=== PATIENT | male | born 1975 | race Caucasian/White ===

== ENCOUNTER → 2016-08-23 | Outpatient (CLI) | payer OTHER ==
[~2016-08-23] MED LIST: KEFL500C7 PO; NAPR250T2 PO; SILD25TA PO; ZANTTAB9 PO
[2016-08-23 17:05] LABS: MEAN CORPUSCULAR HEMOGLOBIN 29.4 pg (27.0-33.0); MEAN CORPUSCULAR HGB CONC 32.7 g/dl (32.0-36.5); MEAN CORPUSCULAR VOLUME 89.9 fl (80.0-96.0); RED CELL DISTRIBUTION WIDTH 12.2 % (11.5-14.5); WHITE BLOOD COUNT 7.1 K/mm3 (4.0-10.0)
[2016-08-23 18:08] LABS: CALCIUM LEVEL 9.1 MG/DL (8.5-10.1); CREATININE FOR GFR 1.6 MG/DL (0.70-1.30); GLOMERULAR FILTRATION RATE 51.5 (>60); POTASSIUM SERUM 4.7 MEQ/L (3.5-5.1)
== END ==
LOC: M WUC 11:27
PROVIDERS: ATTEND Urology
DX: Z01.818 Encounter for other preprocedural examination (principal); N13.30 Unspecified hydronephrosis

== ENCOUNTER → 2016-08-30 | Outpatient (REF) | payer OTHER | LOC: M SMT 16:39 | PROVIDERS: ATTEND Urology | DX: Z01.818 Encounter for other preprocedural examination (principal); N13.30 Unspecified hydronephrosis ==

== ENCOUNTER → 2016-09-02 | Day surgery (SDC) | payer OTHER ==
[~2016-09-02] VITALS: Ht 185.4 cm; Wt 114.3 kg
[~2016-09-02] MED LIST changes: +CONRAY-60 60% 50ML VIAL (Q9961) As Ordered ONE; +CONRAY-60 60% 50ML VIAL (Q9961) XX ONE; +LIDOCAINE 2% 5ML JELLY UROJET As Ordered ONE; +LIDOCAINE 2% 5ML JELLY UROJET XX ONE; +LIDOCAINE 2% INJ 100 MG/5 ML SDV (FOR ANES.) As Ordered ONE; +LR 1,000 ML IV SCH; +LevoFLOXacin IV 500 MG in APPROPRIATE DILUENT 1 EA IV ONE; +MIDAZOLAM INJ 2 MG/2 ML VIAL (J2250) As Ordered ONE; +ONDANSETRON 4MG/2ML VIAL (J2405) As Ordered ONE; +PROPOFOL 200 MG/20 ML VIAL As Ordered ONE; +fentaNYL 100 MCG/2 ML INJECTION (J3010) As Ordered ONE
[2016-09-02 08:45] VITALS: BP 130/68
--- NOTE | 2016-09-02 10:28 | REP ---
RETROGRADE PYELOGRAM: 09/02/2016. Comparison 05/31/2016. Clinical history: Right hydronephrosis. Two views from C-arm fluoroscopy provided to Dr. Black of the urology division. There is a pigtail catheter overlying the right ureter with the proximal coil in the renal pelvis and the distal on the right side of the bladder. Pelvic phleboliths visible. The image of the lower pelvis shows a ureter scope. Fluoroscopy time 0.3 minutes. Signed by Sae Baez MD 09/02/2016 04:18 P
--- NOTE | 2016-09-03 07:04 | RO ---
DATE OF PROCEDURE: 09/02/2016 PREPROCEDURE DIAGNOSIS: Right hydronephrosis. POSTPROCEDURE DIAGNOSIS: Right hydronephrosis. PROCEDURE: Cystoscopy, right ureteral stent removal, right retrograde pyelogram with intraoperative interpretation of images, right ureteral stent placement. SURGEON: Emanuel Black MD SENSORY SCIENTIST: None. ANESTHESIA: Monitored anesthesia care (MAC). OPERATIVE INDICATIONS: This is a 41-year-old male with known atrophic but hydronephrotic right kidney. He was originally seen in the hospital several months ago for what appeared to be urosepsis and, at that time, was found to have likely chronic right ureteropelvic junction obstruction with severe hydronephrosis. This improved with stent placement. It since has been recommended that he would likely benefit from right simple nephrectomy. Due to social issues, he has not been able to set the surgery up and, so for now, he has elected to undergo stent exchanges until he is able to have his kidney removed. DESCRIPTION OF PROCEDURE: The patient brought to the operating room, where MAC anesthesia was administered. Prophylactic antibiotics were infused. He was then placed in the dorsal lithotomy position and prepped and draped in the usual sterile fashion. A rigid cystoscope was inserted into the urethral meatus and advanced to the bladder. The previously placed stent was then seen. It was grasped and was withdrawn until the distal end was seen protruding from the urethral meatus. A wire was then advanced up the stent up to the right collecting system. The stent was then removed, leaving the wire in place. Next, an open-ended ureteral catheter was advanced over the wire up the right collecting system and the wire was the removed. A retrograde pyelogram was performed and notable for what appeared to be severely blown out right kidney. At this point, the wire was advanced back up the right collecting system and the open-ended ureteral catheter was removed. I then advanced a #6- Greenlandic x 22-32 cm JJ ureteral stent over the wire up into the right collecting system. The wire was then removed, and there were adequate curls of the stent in the right renal pelvis and in the bladder. The bladder was then emptied of all fluid, and this marked the conclusion of the procedure. Patient was then taken out of the dorsal lithotomy position, awakened from anesthesia, and transported to the recovery room in stable condition. ESTIMATED BLOOD LOSS: 0 mL. COMPLICATIONS: None. SPECIMENS: None. PLAN: The patient will followup in the clinic in about 2 months and we will, at that time, either discuss potentially removing the stent, exchanging the stent or doing a right nephrectomy. It has been recommended previously that he undergo a right nephrectomy. JUAN
== END | disposition home or self-care (01) ==
LOC: M SDC 06:56
PROVIDERS: ATTEND Urology
DX: N13.30 Unspecified hydronephrosis (principal); K21.9 Gastro-esophageal reflux disease without esophagitis; Z79.899 Other long term (current) drug therapy; Z88.0 Allergy status to penicillin
CPT/HCPCS: 52332; 74420; C1726; C2617; J1956; J2250; J2405; J3010; Q9961

== ENCOUNTER 2016-09-10 18:31 | Emergency (ER) | payer OTHER ==
[~2016-09-10 18:31] MED LIST changes: -CONRAY-60 60% 50ML VIAL (Q9961) As Ordered ONE; -CONRAY-60 60% 50ML VIAL (Q9961) XX ONE; -LIDOCAINE 2% 5ML JELLY UROJET As Ordered ONE; -LIDOCAINE 2% 5ML JELLY UROJET XX ONE; -LIDOCAINE 2% INJ 100 MG/5 ML SDV (FOR ANES.) As Ordered ONE; -LR 1,000 ML IV SCH; -LevoFLOXacin IV 500 MG in APPROPRIATE DILUENT 1 EA IV ONE; -MIDAZOLAM INJ 2 MG/2 ML VIAL (J2250) As Ordered ONE; -ONDANSETRON 4MG/2ML VIAL (J2405) As Ordered ONE; -PROPOFOL 200 MG/20 ML VIAL As Ordered ONE; -fentaNYL 100 MCG/2 ML INJECTION (J3010) As Ordered ONE
== END 2016-09-10 19:39 | disposition left against medical advice (07) ==
LOC: M ED 18:31
DX: R50.9 Fever, unspecified (principal); Z53.20 Procedure and treatment not carried out because of patient's decision for unspecified reasons

== ENCOUNTER → 2016-11-21 | Outpatient (REF) | payer OTHER | LOC: M SMT 16:33 | PROVIDERS: ATTEND Urology | DX: Z01.818 Encounter for other preprocedural examination (principal); N13.30 Unspecified hydronephrosis ==

== ENCOUNTER → 2016-11-22 | Outpatient (CLI) | payer OTHER ==
[2016-11-22 13:48] LABS: MEAN CORPUSCULAR HEMOGLOBIN 29.5 pg (27.0-33.0); MEAN CORPUSCULAR HGB CONC 32.9 g/dl (32.0-36.5); MEAN CORPUSCULAR VOLUME 89.7 fl (80.0-96.0); RED CELL DISTRIBUTION WIDTH 12.9 % (11.5-14.5); WHITE BLOOD COUNT 6.3 K/mm3 (4.0-10.0)
[2016-11-22 13:57] LABS: CREATININE FOR GFR 1.48 MG/DL (0.70-1.30); GLOMERULAR FILTRATION RATE 56.3 (>60); POTASSIUM SERUM 4.5 MEQ/L (3.5-5.1)
== END ==
LOC: M WUC 11:01
PROVIDERS: ATTEND Urology
DX: Z01.818 Encounter for other preprocedural examination (principal); N13.30 Unspecified hydronephrosis

== ENCOUNTER → 2016-11-25 | Day surgery (SDC) | payer OTHER ==
[~2016-11-25] VITALS: Ht 185.4 cm; Wt 120.7 kg
[~2016-11-25] MED LIST changes: +CONRAY-60 60% 50ML VIAL (Q9961) As Ordered ONE; +LIDOCAINE 2% 5ML JELLY UROJET As Ordered ONE; +LIDOCAINE 2% INJ 100 MG/5 ML SDV (FOR ANES.) As Ordered ONE; +LR 1,000 ML IV SCH; +LevoFLOXacin IV 500 MG in APPROPRIATE DILUENT 1 EA IV ONE; +MIDAZOLAM INJ 2 MG/2 ML VIAL (J2250) As Ordered ONE; +PHENYLephrine HCL 500 MCG/5 ML (100MCG/ML) SYRINGE (J2370) As Ordered ONE; +PROPOFOL 200 MG/20 ML VIAL As Ordered ONE; +fentaNYL 100 MCG/2 ML INJECTION (J3010) As Ordered ONE
[2016-11-25 08:15] VITALS: BP 129/85
--- NOTE | 2016-11-25 08:51 | REP ---
C-ARM VIEW ABDOMEN: C-arm view of the abdomen is performed. A right ureteral stent is seen with the proximal end coiled in the region of the right renal collecting system with the distal end coiled in the region of the urinary bladder. 33 seconds of fluoroscopy time utilized. Signed by Martin Spears MD 11/25/2016 05:40 P
--- NOTE | 2016-11-25 09:09 | RO ---
DATE OF PROCEDURE: 11/25/2016 PREPROCEDURE DIAGNOSIS: Right hydronephrosis. POSTPROCEDURE DIAGNOSIS: Right hydronephrosis. PROCEDURE: Cystoscopy, right ureteral stent exchange, right retrograde pyelogram with intraoperative interpretation of images. SURGEON: Emanuel Black MD PRODUCE WRAPPER: None. ANESTHESIA: MAC. OPERATIVE INDICATIONS: This is a 41-year-old male with an atrophic, nonfunctioning right kidney, who was originally seen several months ago for urosepsis due to a an obstructed right kidney and urinary tract infection. A stent was placed at that time, and he improved with that in addition to antibiotics. It has been recommended that the patient have a right nephrectomy since it has been demonstrated that his kidney is nonfunctioning and prone to infection. He wanted to undergo this but will do it a later date. Therefore, for now, he wants to do right ureteral stent exchange. He presented here today for his next stent exchange. DESCRIPTION OF PROCEDURE: The patient was brought to the operating room, where MAC anesthesia was administered. Prophylactic antibiotics were infused. He was then placed in the dorsal lithotomy position and prepped and draped in the usual sterile fashion. A rigid cystoscope was then inserted into the urethral meatus and advanced into the bladder. Once in the bladder, the right stent was seen. The stent was then grasped and withdrawn until the distal end was seen extruding from the urethral meatus. Once that was done, a wire was then advanced up the stent and into the right collecting system. The stent was then removed leaving the wire in place. I then advanced an open ended ureteral catheter over the wire up into the right collecting system. The wire was then removed. I utilized the open ended ureteral catheter to shoot a retrograde pyelogram. The retrograde pyelogram was notable for moderate right hydronephrosis. There was no extravasation. At this point, the wire was then advanced back up the right collecting system. The open ended ureteral catheter was removed. I then utilized the wire to advance a #6-Mauritian x 22-32 cm JJ ureteral stent up the right collecting system. The wire was then removed, and there were adequate curls of the stent in the right renal pelvis and in the bladder. The bladder was then emptied of all fluid, and this marked the conclusion of the procedure. The patient was then taken out of the dorsal lithotomy position, awakened from anesthesia, and transported to the recovery room in stable condition. ESTIMATED BLOOD LOSS: 0 mL. COMPLICATIONS: None. SPECIMENS: None. PLAN: The patient will followup in the clinic in approximately two months and at that time we will either get him set up for a right nephrectomy or his next stent exchange. JUAN
== END | disposition home or self-care (01) ==
LOC: M SDC 06:08
PROVIDERS: ATTEND Urology
DX: N13.30 Unspecified hydronephrosis (principal); K21.9 Gastro-esophageal reflux disease without esophagitis; F43.10 Post-traumatic stress disorder, unspecified; N18.9 Chronic kidney disease, unspecified; Z87.442 Personal history of urinary calculi; Z79.899 Other long term (current) drug therapy
CPT/HCPCS: 52332; 74420; C1726; C2617; J1956; J2250; J2370; J3010; Q9961

== ENCOUNTER → 2017-03-10 | Outpatient (CLI) | payer OTHER ==
[~2017-03-10] MED LIST changes: -CONRAY-60 60% 50ML VIAL (Q9961) As Ordered ONE; +KEFL500C17 PO; -KEFL500C7 PO; -LIDOCAINE 2% 5ML JELLY UROJET As Ordered ONE; -LIDOCAINE 2% INJ 100 MG/5 ML SDV (FOR ANES.) As Ordered ONE; -LR 1,000 ML IV SCH; -LevoFLOXacin IV 500 MG in APPROPRIATE DILUENT 1 EA IV ONE; -MIDAZOLAM INJ 2 MG/2 ML VIAL (J2250) As Ordered ONE; -NAPR250T2 PO; +NAPR250T4 PO; -PHENYLephrine HCL 500 MCG/5 ML (100MCG/ML) SYRINGE (J2370) As Ordered ONE; -PROPOFOL 200 MG/20 ML VIAL As Ordered ONE; -fentaNYL 100 MCG/2 ML INJECTION (J3010) As Ordered ONE
[2017-03-10 13:34] LABS: MEAN CORPUSCULAR HEMOGLOBIN 30.2 pg (27.0-33.0); MEAN CORPUSCULAR VOLUME 88.9 fl (80.0-96.0); RED CELL DISTRIBUTION WIDTH 12.4 % (11.5-14.5)
[2017-03-10 13:54] LABS: CALCIUM LEVEL 9.3 MG/DL (8.5-10.1); CREATININE FOR GFR 1.68 MG/DL (0.70-1.30); GLOMERULAR FILTRATION RATE 48.7 (>60); POTASSIUM SERUM 4.2 MEQ/L (3.5-5.1)
== END ==
LOC: M WUC 11:44
PROVIDERS: ATTEND Urology
DX: Z01.818 Encounter for other preprocedural examination (principal); N13.30 Unspecified hydronephrosis; N39.0 Urinary tract infection, site not specified

== ENCOUNTER 2017-03-17 06:26 | Day surgery (SDC) | payer OTHER ==
[~2017-03-17] VITALS: Ht 185.4 cm; Wt 114.3 kg
[2017-03-17] MEDS ORDERED: LR 1,000 ML IV SCH ×2 (06:45→08:30)
[2017-03-17] MEDS ORDERED: LevoFLOXacin IV 500 MG in APPROPRIATE DILUENT 1 EA IV ONE (06:45)
[2017-03-17] MEDS ORDERED: ROCURONIUM BROMIDE 50 MG/5 ML VIAL/SYRINGE As Ordered ONE (07:11)
[2017-03-17] MEDS ORDERED: ONDANSETRON 4MG/2ML VIAL (J2405) As Ordered ONE (07:11)
[2017-03-17] MEDS ORDERED: PROPOFOL 200 MG/20 ML VIAL As Ordered ONE ×2 (07:11→07:55)
[2017-03-17] MEDS ORDERED: fentaNYL 100 MCG/2 ML INJECTION (J3010) As Ordered ONE (07:12)
[2017-03-17] MEDS ORDERED: MIDAZOLAM INJ 2 MG/2 ML VIAL (J2250) As Ordered ONE (07:12)
[2017-03-17] MEDS ORDERED: CONRAY-60 60% 50ML VIAL (Q9961) As Ordered ONE (07:16)
[2017-03-17] MEDS ORDERED: LIDOCAINE 2% 5ML JELLY UROJET As Ordered ONE (07:43)
[2017-03-17 08:23] VITALS: BP 119/74
[2017-03-17] MEDS ORDERED: fentaNYL 100 MCG/2 ML INJECTION (J3010) IV PRN (08:30)
[2017-03-17] MEDS ORDERED: ACETAMINOPHEN TAB 650MG DOSE (2X325MG) PO PRN (08:30)
[2017-03-17] MEDS ORDERED: ONDANSETRON 4MG/2ML VIAL (J2405) IV PRN (08:30)
[2017-03-17] MEDS ORDERED: PERCOCET 5MG/325MG TAB PO PRN (08:30)
[2017-03-17] MEDS ORDERED: METOCLOPRAMIDE INJ 10MG/2ML VIAL (J2765) IV PRN (08:30)
[2017-03-17] MEDS ORDERED: MEPERIDINE INJ 25 MG/ML VIAL (J2175) IV PRN (08:30)
--- NOTE | 2017-03-17 11:10 | REP ---
Retrograde pyelogram: Two views. History: Hydronephrosis. 23 seconds of fluoroscopy time is reported. Findings: A sequence of two last image hold fluoroscopic spot radiographs of the abdomen document double pigtail ureteral stent placement on the right. Marked hydronephrosis is seen with contrast injected into the collecting system. Signed by French Argueta MD 03/17/2017 12:33 P
--- NOTE | 2017-03-19 11:34 | RO ---
DATE OF PROCEDURE: 03/17/2017 PREPROCEDURE DIAGNOSIS: Right hydronephrosis. POSTPROCEDURE DIAGNOSIS: Right hydronephrosis. PROCEDURE: Cystoscopy, right ureteral stent exchange, right retrograde pyelogram with intraoperative interpretation of images. SURGEON: Dr. Emanuel Black ASSIGNMENT OFFICER: None. ANESTHESIA: MAC. OPERATIVE INDICATIONS: This is a 41-year-old male with a history of right sided hydronephrosis and ureteropelvic obstruction. He has a nonfunctioning right kidney, which was first found out when he came in with septic shock, urinary tract infection (UTI) and hydronephrosis. It has been recommended that he have the kidney removed, but he has delayed this and therefore he presents today for stent exchanges. He is here today for a routine stent exchange. DESCRIPTION OF PROCEDURE: The patient was brought to the operating room, where MAC anesthesia was administered. Prophylactic antibiotics were infused. He was then placed in the dorsal lithotomy position and prepped and draped in the usual sterile fashion. A rigid cystoscope was then inserted into the urethral meatus and advanced into the bladder. Once within the bladder, the previously placed right ureteral stent was seen. The stent was then withdrawn until the distal end was seen protruding from the urethral meatus. We then advanced the wire up into the stent and into the right collecting system. The stent was removed leaving the wire in place. We then advanced an open ended ureteral catheter up the wire and into the right collecting system. The wire was then removed leaving the ureteral catheter in place. At this point, a retrograde pyelogram was performed and was notable for severely dilated right kidney. There was no extravasation. At this point, the wire was advanced back up into the ureteral catheter and the ureteral catheter was removed, leaving the wire in place. The wire was then utilized to advance a #6-Nepalese x 22-32 cm JJ ureteral stent up the right collecting system. The wire was then removed, and there were adequate curls of the stent in the right renal pelvis and in the bladder. The bladder was then emptied of all fluid, and this marked the conclusion of the procedure. The patient was then taken out of the dorsal lithotomy position, awakened from anesthesia, and transported to the recovery room in stable condition. ESTIMATED BLOOD LOSS: 0 mL. COMPLICATIONS: None. SPECIMENS: None. PLAN: The patient will followup in the clinic in about 2 months to get him set up either for removal of the kidney or another stent exchange. JUAN
== END 2017-03-17 08:26 | disposition home or self-care (01) ==
LOC: CANPRESDC → M SDC 06:26
PROVIDERS: ATTEND Urology
DX: N13.30 Unspecified hydronephrosis (principal); Z79.899 Other long term (current) drug therapy
CPT/HCPCS: 52332; 74420; C1769; C2617; J1956; J2250; J2405; J3010; Q9961

== ENCOUNTER → 2017-06-26 | Outpatient (CLI) | payer OTHER ==
[2017-06-26 14:28] LABS: MEAN CORPUSCULAR HEMOGLOBIN 28.5 pg (27.0-33.0); MEAN CORPUSCULAR HGB CONC 32.5 g/dl (32.0-36.5); MEAN CORPUSCULAR VOLUME 87.8 fl (80.0-96.0); PLATELET COUNT, AUTOMATED 368 10^3/uL (150-450); RED CELL DISTRIBUTION WIDTH 12.6 % (11.5-14.5); WHITE BLOOD COUNT 9.3 10^3/uL (4.0-10.0)
[2017-06-26 14:33] LABS: CALCIUM LEVEL 9.1 MG/DL (8.5-10.1); CREATININE FOR GFR 1.69 MG/DL (0.70-1.30); GLOMERULAR FILTRATION RATE 48.1 (>60); POTASSIUM SERUM 4.5 MEQ/L (3.5-5.1)
== END ==
LOC: M WUC 11:34
PROVIDERS: ATTEND Urology
DX: Z01.818 Encounter for other preprocedural examination (principal); N13.30 Unspecified hydronephrosis; N39.0 Urinary tract infection, site not specified

== ENCOUNTER 2017-06-27 07:24 | Day surgery (SDC) | payer OTHER ==
[~2017-06-27] VITALS: Ht 185.4 cm; Wt 124.2 kg
[2017-06-27] MEDS ORDERED: LevoFLOXacin IV 500 MG in APPROPRIATE DILUENT 1 EA IV ONE (07:45)
[2017-06-27] MEDS ORDERED: LR 1,000 ML IV ONE (08:45)
[2017-06-27] MEDS ORDERED: CONRAY-60 60% 50ML VIAL (Q9961) As Ordered ONE (10:34)
[2017-06-27] MEDS ORDERED: LIDOCAINE 2% 5ML JELLY UROJET As Ordered ONE (10:50)
[2017-06-27] MEDS ORDERED: fentaNYL 100 MCG/2 ML INJECTION (J3010) As Ordered ONE (11:06)
[2017-06-27] MEDS ORDERED: MIDAZOLAM INJ 2 MG/2 ML VIAL (J2250) As Ordered ONE (11:06)
[2017-06-27] MEDS ORDERED: PROPOFOL 200 MG/20 ML VIAL As Ordered ONE (11:06)
[2017-06-27] MEDS ORDERED: ONDANSETRON 4MG/2ML VIAL (J2405) As Ordered ONE (11:10)
[2017-06-27] MEDS ORDERED: dexameTHASONE 4 MG/ML 1ML VIAL (J1100) As Ordered ONE (11:10)
[2017-06-27] MEDS ORDERED: KETOROLAC 60 MG/2 ML VIAL (J1885) As Ordered ONE (11:11)
--- NOTE | 2017-06-27 11:23 | ROOPDOC ---
[facility] Report Of Operation Report of Operation DATE OF PROCEDURE: 06/27/2017 PREPROCEDURE DIAGNOSIS: Right hydronephrosis. POSTPROCEDURE DIAGNOSIS: Right hydronephrosis. PROCEDURE: Cystoscopy, right ureteral stent removal, right ureteral stent placement, right retrograde pyelogram with intraoperative interpretation of images. SURGEON: Dr. Tomi Robles RN POSTPARTUM: None. ANESTHESIA: MAC. OPERATIVE INDICATIONS: This is a 42-year-old male with a history of right sided hydronephrosis and ureteropelvic obstruction. He has a nonfunctioning right kidney, which was first found out when he came in with septic shock, urinary tract infection (UTI) and hydronephrosis. It has been recommended that he have the kidney removed, but he has delayed this and therefore he presents today for stent exchanges. He is here today for a routine stent exchange. DESCRIPTION OF PROCEDURE: The patient was brought to the operating room, where MAC anesthesia was administered. Prophylactic antibiotics were infused. He was then placed in the dorsal lithotomy position and prepped and draped in the usual sterile fashion. A rigid cystoscope was then inserted into the urethral meatus and advanced into the bladder. Once within the bladder, the previously placed right ureteral stent was seen. The stent was then withdrawn until the distal end was seen protruding from the urethral meatus. We then advanced the wire up into the stent and into the right collecting system. The stent was removed leaving the wire in place. We then advanced an open ended ureteral catheter up the wire and into the right collecting system. The wire was then removed leaving the ureteral catheter in place. At this point, a retrograde pyelogram was performed and was notable for severely dilated right kidney. There was no extravasation. At this point, the wire was advanced back up into the ureteral catheter and the ureteral catheter was removed, leaving the wire in place. The wire was then utilized to advance a #6-Sami x 22-32 cm JJ ureteral stent up the right collecting system. The wire was then removed, and there were adequate curls of the stent in the right renal pelvis and in the bladder. The bladder was then emptied of all fluid, and this marked the conclusion of the procedure. The patient was then taken out of the dorsal lithotomy position, awakened from anesthesia, and transported to the recovery room in stable condition. ESTIMATED BLOOD LOSS: 0 mL. COMPLICATIONS: None. SPECIMENS: None. PLAN: The patient will followup in the clinic in about 2 months to get him set up either for removal of the kidney or another stent exchange. TOMI ROBLES MD Jun 27, 2017 11:23
[2017-06-27 11:40] VITALS: BP 122/78
--- NOTE | 2017-06-27 11:52 | REP ---
Retrograde pyelogram: Two views. History: Right-sided hydronephrosis. Findings: A sequence of two last image hold fluoroscopically obtained spot radiographs of the abdomen document ureteral contrast injection cannulation and stenting. No laterality markers. 17 seconds of fluoroscopy time is reported. Signed by French Argueta MD 06/27/2017 02:44 P
== END 2017-06-27 11:46 | disposition home or self-care (01) ==
LOC: M SDC 07:24
PROVIDERS: ATTEND Urology
DX: N13.30 Unspecified hydronephrosis (principal); K21.9 Gastro-esophageal reflux disease without esophagitis; N28.9 Disorder of kidney and ureter, unspecified; Z79.899 Other long term (current) drug therapy
CPT/HCPCS: 52332; 74420; C1769; C2617; J1100; J1885; J1956; J2250; J2405; J3010; Q9961

== ENCOUNTER → 2017-11-28 | Outpatient (REF) | payer OTHER ==
[2017-11-28 18:56] LABS: APPEARANCE, URINE CLEAR (CLEAR); BACTERIA, URINE AUTO NEGATIVE (NEGATIVE); BILIRUBIN, URINE AUTO NEGATIVE (NEGATIVE); BLOOD, URINE BLOOD 2+ (NEGATIVE); COLOR, URINE YELLOW (YELLOW); GLUCOSE, URINE (UA) AUTO NEGATIVE (NEGATIVE); KETONE, URINE AUTO NEGATIVE (NEGATIVE); LEUKOCYTE ESTERASE, URINE AUTO NEGATIVE (NEGATIVE); MUCUS, URINE SMALL (NEGATIVE); NITRITE, URINE AUTO NEGATIVE (NEGATIVE); PROTEIN, URINE AUTO 1+ mg/dL (NEGATIVE); RBC, URINE AUTO 1 /HPF (0-3); SPECIFIC GRAVITY URINE AUTO 1.018 (1.002-1.035); SQUAMOUS EPITHELIAL CELL UR AU 0 /HPF (0-6); UROBILINOGEN, URINE AUTO 0.2 mg/dL (0.0-2.0); WBC, URINE AUTO 2 /HPF (0-3)
== END ==
LOC: M SMT 17:37
DX: N39.0 Urinary tract infection, site not specified (principal)

== ENCOUNTER 2018-08-28 10:13 | Day surgery (SDC) | payer OTHER ==
[~2018-08-28] VITALS: Ht 185.4 cm; Wt 119.7 kg
[~2018-08-28 10:13] MED LIST changes: +GLYCOPYRROLATE INJ 0.2 MG/ML 2 ML VIAL As Ordered ONE; +LIDOCAINE 2% INJ 100 MG/5 ML SDV (FOR ANES.) As Ordered ONE; +LR 1,000 ML IV SCH; +MIDAZOLAM INJ 2 MG/2 ML VIAL (J2250) As Ordered ONE; +NEOSTIGMINE 10 MG/10 ML VIAL (J2710) As Ordered ONE; +ONDANSETRON 4MG/2ML VIAL (J2405) As Ordered ONE; +PROPOFOL 200 MG/20 ML VIAL As Ordered ONE; +ROCURONIUM BROMIDE 50 MG/5 ML VIAL As Ordered ONE; +dexameTHASONE 4 MG/ML 1ML VIAL (J1100) As Ordered ONE; +fentaNYL 100 MCG/2 ML INJECTION (J3010) As Ordered ONE
[2018-08-28] MEDS ORDERED: CLINDAMYCIN 600 MG/50 ML PREMIX BAG As Ordered ONE (11:04)
[2018-08-28 11:20] LABS: CALCIUM LEVEL 8.5 MG/DL (8.5-10.1); CREATININE FOR GFR 1.63 MG/DL (0.70-1.30); GLOMERULAR FILTRATION RATE 49.9 (>60); POTASSIUM SERUM 3.4 MEQ/L (3.5-5.1)
[2018-08-28] MEDS ORDERED: CLINDAMYCIN 600 MG in APPROPRIATE DILUENT 1 EA IV ONE (11:30)
[2018-08-28] MEDS ORDERED: BUPIVACAINE/EPIN 0.25% 30 ML VIAL As Ordered ONE (12:27)
[2018-08-28] MEDS ORDERED: GLYCOPYRROLATE INJ 0.2 MG/ML 2 ML VIAL As Ordered ONE (13:05)
[2018-08-28] MEDS ORDERED: fentaNYL 100 MCG/2 ML INJECTION (J3010) As Ordered ONE ×2 (13:14→13:49)
[2018-08-28] MEDS ORDERED: KETOROLAC 60 MG/2 ML VIAL (J1885) As Ordered ONE (13:16)
[2018-08-28] MEDS: fentaNYL 100 MCG/2 ML INJECTION (J3010) IV PRN ×4 (13:52→14:11)
[2018-08-28] MEDS ORDERED: LR 1,000 ML IV SCH (14:00)
[2018-08-28] MEDS ORDERED: ONDANSETRON 4MG/2ML VIAL (J2405) IV PRN (14:00)
[2018-08-28] MEDS ORDERED: NORCO, ANEXSIA 5/325MG TABLET (HYDROcodone/ACETAMINOPHEN) PO PRN (14:15)
[2018-08-28] MEDS ORDERED: HYDROMORPHONE HCL 0.5 MG/ 0.5 ML SYRINGE (J1170 PER 1) As Ordered ONE (14:21)
[2018-08-28] MEDS ORDERED: KETOROLAC 30 MG/ML VIAL (J1885) As Ordered ONE (14:21)
[2018-08-28] MEDS: PERCOCET 5MG/325MG TAB PO PRN ×2 (14:24→15:17)
[2018-08-28] MEDS ORDERED: KETOROLAC 30 MG/ML VIAL (J1885) IV PRN (14:30)
[2018-08-28] MEDS: HYDROMORPHONE HCL 0.5 MG/ 0.5 ML SYRINGE (J1170 PER 1) IV PRN ×2 (14:31→14:56)
[2018-08-28] MEDS ORDERED: PERCOCET 5MG/325MG TAB As Ordered ONE (15:16)
[2018-08-28 16:45] VITALS: BP 120/64
--- NOTE | 2018-08-28 16:50 | RO ---
DATE OF PROCEDURE: 08/28/2018 PREOPERATIVE DIAGNOSIS: Incarcerated umbilical hernia. POSTOPERATIVE DIAGNOSIS: Incarcerated umbilical hernia. OPERATIVE PROCEDURE: Laparoscopic incarcerated umbilical hernia repair. SURGEON: Martin Fuentes DO SHEET LAYER: Clemencia Lancaster ANESTHESIA: General. ESTIMATED BLOOD LOSS: 5 mL COMPLICATIONS: None. INDICATIONS FOR PROCEDURE The patient 43-year-old male who presents with a large incarcerated umbilical hernia. Recommendation is to proceed with laparoscopic, possible open repair. Risks and benefits of the procedure not limited to but including bleeding, infection, hernia, recurrence of hernia formation, damage to surrounding structures, need for further surgery discussed in detail with the patient and informed consent was obtained and procedure was planned. DESCRIPTION OF PROCEDURE: The patient was brought to back to operating room 6 after sufficient sedation and the abdomen was sterilely prepped and draped. Next a time out was done to confirm proper patient and proper procedure. Following that, a 5 mm incision was made in the left lower quadrant. Veress needle was inserted and the abdomen was insufflated to 50 mmHg. Next, the Veress needle was removed. The 5 mm OptiVu port was used to gain access to the abdomen. Once abdomen was entered, there was a loop of small bowel and omentum stuck up inside an umbilical hernia. Another 5 mm port was then placed in the left lower abdomen. Using some blunt dissection was able to carefully remove the contents from the hernia sac. Once that was completed, the Enseal was used to circumferentially dissect the hernia sac and remove it. Once the hernia sac was completely removed, it was brought out through the left upper quadrant port site using a pair of Elaina clamps. Next, a 12 cm round Parietex mesh had #0 Vicryl sutures placed in all four corners. It was rolled up and placed inside the abdomen. Transfascial sutures were then brought out through the abdominal wall using a Som-Humphrey needle. Once that was completed, two rows secure strap tacks were placed around perimeter of the mesh. The transfascial sutures were tied in place. The abdomen was examined to confirm hemostasis. The abdomen was then desufflated. Skin incisions closed with #4-0 Vicryl subcuticular sutures. The abdomen cleaned and dried. Steri-Strips, 4 x 4 and tape were applied thus ending procedure.
== END 2018-08-28 16:50 | disposition home or self-care (01) ==
LOC: M SDC 10:13
PROVIDERS: ATTEND Surgery
DX: K42.0 Umbilical hernia with obstruction, without gangrene (principal); K21.9 Gastro-esophageal reflux disease without esophagitis; Z88.0 Allergy status to penicillin
CPT/HCPCS: 36415; 49653; 80048; 88302; C1781; J1100; J1170; J1885; J2250; J2405; J2710; J3010